=== PATIENT | female | born 1985 | race Caucasian/White ===

== ENCOUNTER → 2020-03-12 | Day surgery (SDC) | payer OTHER ==
[~2020-03-12] VITALS: Ht 160 cm; Wt 86.2 kg
[2020-03-12] VITALS (12 sets, daily range): BP systolic 32–149; BP diastolic 72–90
[~2020-03-12] MED LIST: ADVIL100 M2 ORAL; Bacitracin 50000 Units Vial ONE; Bupivacaine 0.25% Inj 30ml INJ ONE; CARIPRAZINE PO; D5 1/2NS 1,000 ML IV SCH; DiphenhydrAMINE 50mg/ml Inj IVP PRN; HYDROcodone/Acetamin 5/325 tab ORAL PRN; HYDROmorphone 1mg/ml Carpuject SUBQ PRN; Hydromorphone 0.5mg/0.5ml inj IVP PRN; Ketamine 500mg/10ml vial ONE; Ketorolac 30mg Inj IV PRN; Ketorolac 30mg Inj ONE; LORazepam Inj 2mg/ml 1ml IV PRN; LR 1000ml 1,000 ML IVLG SCH; Labetalol 5mg/ml 20ml vial IV PRN; Lidocaine 1% MPF 10mg/ml 5ml ONE; Metoclopramide 10mg/2ml Inj ONE; Midazolam 2mg/2ml Inj IVP PRN; Midazolam 2mg/2ml Inj ONE; NS Irrig 1000ml IRRIG ONE; NeoSporin Gu Irrig 1ml Amp IRRIG ONE; Ropivacaine 5mg/ml Vial 20ml INJ ONE; Tylenol #3 tab (300mg/30mg) ORAL PRN; ZOLOFT100 MG ORAL; ceFAZolin 1gm IVPB IVPB ONE; celeBREX 200mg Cap **SURGERY PATIENTS ONLY ORAL ONE; fentaNYL 100 mcg/2 mL IV ONE; fentaNYL 100 mcg/2 mL IV PRN; oxyCONTIN 20mg tab ORAL ONE
--- NOTE | 2020-03-12 11:29 | Anethesia Preoperative Eval ---
Anesthesia Pre-op PMH/ROS General Date of Evaluation: Mar 12, 2020 Anesthesiologist: Stan ASA Score: ASA 2 Mallampati Score Class I : Soft palate, uvula, fauces, pillars visible Class II: Soft palate, uvula, fauces visible Class III: Soft palate, base of uvula visible Class IV: Only hard plate visible Mallampati Classification: Class II Surgeon: Jose Diagnosis: Right wrist fracture Surgical Procedure: Right wrist ORIF Anesthesia History: none Family History: no anesthesia problems Allergies: Coded Allergies: No Known Allergies (Unverified , 03/12/20) Medications: see eMAR Patient NPO?: Yes NPO Date: Mar 12, 2020 NPO Time: 00:00 Past Medical History Cardiovascular: Denies: HTN, CAD, [place], valve dz, arrhythmia, other Pulmonary: Denies: asthma, COPD, DEIDRE, other Gastrointestinal/Genitourinary: Denies: GERD, CRI, ESRD, other Neurologic/Psychiatric: Reports: depression/anxiety; Denies: dementia, CVA, TIA, other Endocrine: Denies: DM, hypothyroidism, steroids, other HEENT: Denies: cataract (L), cataract (R), glaucoma, POARCH (L), POARCH (R), other Hematology/Immune: Denies: anemia, DVT, bleeding disorder, other Musculoskeletal/Integumentary: Denies: OA, RA, DJD, DDD, edema, other Other: obesity PSxH Narrative: Denies Anesthesia Pre-op Phys. Exam Physician Exam Last Vital Signs Date Time Temp Pulse Resp B/P (MAP) Pulse Ox O2 Delivery O2 Flow Rate FiO2 03/12/20 10:43 Room Air 03/12/20 10:42 97.9 75 18 117/74 96 Constitutional: NAD Cardiovascular: RRR Respiratory: CTA Airway Exam Mallampati Score: Class II MO: full ROM: full Teeth: intact Anesthesia Pre-op A/P Labs see chart Urine Test Test 03/12/20 10:15 Urine HCG, Qualitative Negative (NEGATIVE) Risk Assessment & Plan Assessment: ASA II Plan: GA with peripheral nerve block Status Change Before Surgery: No Pre-Antibiotics Drug: Ancef 2g Given Within 1 Hr of Incision: Yes Gale Pierce MD Mar 12, 2020 11:29
--- NOTE | 2020-03-12 13:56 | Pre-Procedure Note/Attestation ---
Pre-Procedure Note/Attestation Complete Prior to Procedure Planned Procedure: right Procedure Narrative: wrist orif Indications for Procedure Pre-Operative Diagnosis: right wrist fracture Attestation I attest that I discussed the nature of the procedure; its benefits; risks and complications; and alternatives (and the risks and benefits of such alternatives), prior to the procedure, with the patient (or the patient's legal membership sales representative). I attest that, if there was a reasonable possibility of needing a blood tr ansfusion, the patient (or the patient's legal membership sales representative) was given the [facility] standardized written summary, pursuant to the Nino Ezequiel Blood Safety Act ([place] Health and Safety Code # 1645, as amended). I attest that I re-evaluated the patient just prior to the surgery and that there has been no change in the patient's H&P, except as documented below: Jens Garcia MD Mar 12, 2020 13:56
--- NOTE | 2020-03-12 13:57 | Operative Note - PDOC ---
Operative Note Operative Note Pre-op Diagnosis: right wrist fracture Procedure: see op report Post-op Diagnosis: same as pre-op plus Operative Findings: consistent w/pre-op dx studies Anesthesia: regional Specimen: none Complications: none Condition: stable Estimated Blood Loss: none Implant(s) used?: Yes Jens Garcia MD Mar 12, 2020 13:57
--- NOTE | 2020-03-12 15:07 | Immediate Post-Op Evaluation ---
Immediate Post-Op Evalulation Immediate Post-Op Evalulation Procedure: Right wrist ORIF Date of Evaluation: Mar 12, 2020 Time of Evaluation: 15:09 IV Fluids: 800 Blood Products: 0 Estimated Blood Loss: min Urinary Output: 0 Blood Pressure Systolic: 116 Blood Pressure Diastolic: 89 Pulse Rate: 87 Respiratory Rate: 16 O2 Sat by Pulse Oximetry: 99 Temperature (Fahrenheit): 99 Pain Score (1-10): 0 Nausea: No Vomiting: No Complications 0 Patient Status: awake, reacts, patent, none Hydration Status: adequate Drug: Ancef 2g Given Within 1 Hr of Incision: Yes Gale Pierce MD Mar 12, 2020 15:07
--- NOTE | 2020-03-12 15:07 | 48 Hour Post Anesthesia Eval ---
Post Anesthesia Evaluation Procedure: Right wrist ORIF Date of Evaluation: Mar 12, 2020 Airway: patent Nausea: No Vomiting: No Pain Intensity: 0 Hydration Status: adequate Cardiopulmonary Status: at baseline Mental Status/LOC: patient returned to baseline Post-Anesthesia Complications: 0 Follow-up care needed: ready to discharge Gale Pierce MD Mar 12, 2020 15:07
--- NOTE | 2020-03-12 15:45 | Operative Note - Dictated ---
DATE OF OPERATION: 03/12/2020 PREOPERATIVE DIAGNOSIS: Right intraarticular distal radius chondral fracture more than 3 pieces involving the lunate facet. POSTOPERATIVE DIAGNOSIS: Right intraarticular distal radius chondral fracture more than 3 pieces involving the lunate facet. PROCEDURE: 1. Open reduction and internal fixation right distal radius fracture with plate and screw fixation. 2. Closed treatment right ulnar styloid fracture. 3. Application of posterior splint. SURGEON: Jens Garcia MD ANESTHESIA: Axillary with general. INDICATION FOR PROCEDURE: Patient is a pleasant female who sustained a mechanical fall. She was diagnosed with an intraarticular fracture. Repeat imaging studies showed unstable lunate fossa fracture along the volar surface with displacement. Given the unstable nature of the fracture, operative fixation was recommended. Risks, limitations, expectations, and complications related to the procedure were discussed in detail. All questions addressed. DESCRIPTION OF PROCEDURE: After informed consent was obtained, patient was brought to the operating room. Patient was placed under general anesthesia. Right arm was prepped and draped in a sterile manner. Time-out was performed distal radius was performed. Once pronator quadratus was identified and incised off the radial border dissected to the ulnar side, fracture was identified. The lunate fossa component was reduced. A narrow plate was selected, but it seemed like was not capturing enough of the distal radius. Therefore, a wide plate was selected. K-wires placed distally and proximally. Once adequate positioning was confirmed on AP and lateral imaging, multiple screws were placed for secure fixation. Imaging study showed good overall reduction of the fracture fragment. At this point, there was no gross instability of DRUJ joint. Wound was copiously irrigated. The pronator quadratus was reapproximated using 3-0 Vicryl suture. Skin was reapproximated using 3-0 Vicryl suture, 3-0 Monocryl suture, Dermabond dressing. Posterior splint was applied. Patient was awoken and taken to recovery room with stable vital signs. ESTIMATED BLOOD LOSS: None. COMPLICATIONS: None. SPECIMENS: Include hand innovation volar plate. Jens Garcia M.D. DR: ESME JOB#: [id number] CC:
--- NOTE | 2020-03-12 17:53 | Diagnostic Imaging Report ---
INDICATION: Pain, intraoperative TECHNIQUE: Intraoperative imaging Fluoroscopy time: 46.2 seconds Total dose: 0.75288 mGym2 Total number of images: 2 COMPARISON: None FINDINGS: Intraoperative images demonstrate placement of sideplate and screws presumably for repair of distal radial fracture. IMPRESSION: Intraoperative imaging, as described
== END | disposition home or self-care (01) ==
LOC: SUR 10:05
DX: S52.571A Other intraarticular fracture of lower end of right radius, initial encounter for closed fracture (principal); F32.9 Major depressive disorder, single episode, unspecified; F41.9 Anxiety disorder, unspecified; E66.9 Obesity, unspecified; Z68.33 Body mass index [BMI] 33.0-33.9, adult; X58.XXXA Exposure to other specified factors, initial encounter; Y92.9 Unspecified place or not applicable
CPT/HCPCS: 25609; 73100; 76000; 81025; J0690; J1100; J1170; J1885; J2250; J2405; J2704; J2765; J2795; J3010; J3490; U0002